=== PATIENT | male | born 1960 | race American Indian/Alaskan Native ===

== ENCOUNTER 2017-11-02 06:28 | Day surgery (SDC) | payer OTHER ==
[2017-09-27 10:51] VITALS: BMI 25.8
[2017-11-02 06:50] VITALS: RESP 18
[2017-11-02] MEDS ORDERED: Bupivacaine HCl 0.25% PF (30 ml) Inj ONE (07:18)
[2017-11-02] MEDS: Iohexol 240 (50 ml) ONE ×3 (07:22→07:52)
[2017-11-02] MEDS: MethylPREDNISolone Depo 40 mg/ml Inj ONE ×5 (07:23→07:52)
[2017-11-02] MEDS: Bupivacaine HCl 0.5% PF (30 ml) Inj IJ ONE ×3 (07:23→07:52)
[2017-11-02] MEDS ORDERED: ceFAZolin 1 gm in NS 0 GM/0 ML BAG IVPB ONE (07:31)
[2017-11-02] MEDS ORDERED: HYDROmorphone 1 mg/ml ISec IM PRN (08:10)
[2017-11-02] MEDS ORDERED: Oxycodone/Acetaminophen 5/325 mg Tab PO PRN (08:12)
[2017-11-02 08:40] VITALS: BP 113/72; PULSE 71; TEMP 98.1; O2SAT 100
--- NOTE | 2017-11-05 08:27 | RAD ---
PROCEDURE: Intraoperative Fluoroscopy. HISTORY: Right. HIP LABRAL TEAR FINDINGS: Fluoroscopic assistance was provided for right hip injection. Please refer to the operative report from YASMIN Lyons, , MD MELANIE.
--- NOTE | 2017-12-06 01:16 | OP ---
PROCEDURE DATE: 11/02/2017 PREOPERATIVE DIAGNOSES: Right hip; 1. Posttraumatic degenerative joint disease. 2. Stiffness. 3. Greater trochanteric bursitis. 4. Abductor tendinopathy. 5. Synovitis. PREOPERATIVE DIAGNOSES: Right hip; 1. Posttraumatic degenerative joint disease. 2. Stiffness. 3. Greater trochanteric bursitis. 4. Abductor tendinopathy. 5. Synovitis. PROCEDURE: Right shoulder injections under fluoroscopic guidance; 1. Intraarticular injection. 2. Greater trochanteric bursa injection. SURGEON: Scott Lynch MD. CABIN SUPERVISOR: None. ANESTHESIA: Local anesthetic, applied by surgeon. COMPLICATIONS: None. SPECIMEN: None. DRAINS: None. ESTIMATED BLOOD LOSS: 0 mL. DISPOSITION: The patient transferred to PACU in stable condition and tolerated the procedure well. INJECTION CONTENTS: Intraarticular injection consisting of 80 mg of Depo-Medrol preservative free in 2 mL/2 mL 0.5% Marcaine without epinephrine preservative free/2 mL of 2% lidocaine without epinephrine preservative free. Greater trochanteric bursa injection content 80 mg of Depo-Medrol preservative free in 2 mL/0.5% Marcaine preservative free without epinephrine, 2 mL/2% lidocaine without epinephrine, preservative free, 2 mL. INDICATIONS FOR PROCEDURE: The patient is a 57-year-old male with no significant past medical history who presents to the office first time on 08/28/2017 with right hip pain and disability with inability to weightbear on right lower extremity for a few weeks. X-rays in the office revealed significant posttraumatic DJD. Physical exam revealed tenderness to palpation at the greater trochanteric bursa as well as groin tenderness to palpation and limited range of motion with pain. He underwent an MR arthrogram of the right hip at [facility] on 09/13/2017 that was read as; 1. Prominent narrowing of the right hip joint space with cartilage thinning and loss. Prominent subchondral cyst formation at the level of the bony acetabulum at its mid portion measuring 7 mm. Additional prominent subchondral cyst formation or an interosseous ganglion formation measuring 1.6 cm, seen within the posterior column of the acetabulum. Prominent signal changes seen within the posterior and superior lateral acetabulum with decreased T1 signal and increased STIR signal best seen for series 2, image 12. This may represent severe osteochondral change versus stress injury versus subchondral osseous injury. Clinical correlation. 2. Fraying and increased signal seen at the undersurface of the right anterior acetabular labrum. 3. Moderate interstitial tendinopathy of the right gluteus tendon attachments on the greater trochanter. On my review of the MRI, I also confirmed that there was significant greater trochanteric bursitis. The patient's pain was significant in the office, rated 10/10 to 8/10 with pain worse with increased activity. He was having significant problems with ADLs and performing his work duties and was unable to return to work for sometime. With the stress fracture of the acetabulum, a total hip arthroplasty although would be a definitive treatment was not indicated at this point in time as there was weakened bone. He would have to have a period of time where he is nonweightbearing to the right lower extremity to allow the stress fracture of the acetabulum to heal. To provide him with at least temporary pain relief and to delay the total hip replacement as much as possible it was indicated for right hip intraarticular fluoroscopic guided cortisone mixture injection as well as greater trochanteric bursa cortisone mixture injection. He did not wish to have sedation and therefore, we do not seek any preadmission testing or medical clearance. The procedure was scheduled at [facility] on 11/02/2017 after we sorted out his complex insurance issues. The risks, benefits, and alternatives of the procedure were discussed at length with the patient with the risks included, not limited to infection, neurovascular damage, need for further surgery, synovitis, allergic reaction, increased pain, need for further procedures. After answering all of his questions, he stated he understood the risks and wished to proceed with the procedure. He watched surgical animation videos and diagnosis animation videos and stated he had a good understanding of his diagnosis as well as the procedure to be done. PROCEDURE IN DETAIL: The patient was identified in the preoperative holding area and the right hip was marked for surgery. Once again as described above, the risks, benefits and alternatives of the procedure were discussed at length with the patient and informed consent was obtained. After a brief discussion with the anesthesia staff, perioperative IV antibiotics were administered. The patient was taken to the operating room and placed on the well-padded operating room table that was radiolucent. All bony prominences and superficial neurovascular structures are well padded. Final time-out was done with the surgeon, anesthesia staff, OR staff. All in agreement with the patient, procedure being done, and the extremity being operated on. Right hip was prepped and draped in standard sterile fashion. Both his feet were tapped together in internal rotation to allow for optimal access to the anterior hip capsule. Bony landmarks of the ASIS was palpated and a line was drawn going down the long access of the leg. With fluoroscopic imaging, the tip of the greater trochanter was confirmed and a line perpendicular to the previous line was drawn across the long access of the leg. Care was taken to stay in the upper outer quadrant to avoid and maximize the chances of avoiding the neurovascular structures and preventing neurovascular injury. The optimal entry point for the spinal needle was identified and 10 mL of local anesthetic consisting of 2% lidocaine without epinephrine preservative free were injected to allow for local anesthetic. Once the local anesthetic took effect, the spinal needle was advanced through the infiltrated entry point for the spinal needle at the skin down to the superior femoral head and neck junction at an intracapsulary position. To confirm an intracapsulary position of the spinal needle, 1:1 mixture diluted of radio opaque contrast and 2% lidocaine without epinephrine preservative free were injected, 2 mL in total to confirm pooling of the contrast and a positive ring sign. It was reconfirmed that the spinal needle was in intraarticular position, excess contrast mixture was aspirated back into the syringe and the final treatment injection, 6 mL total consisting of 2 mL, 80 mg of Depo-Medrol preservative free with 2 mL of 2% lidocaine without epinephrine preservative free and 2 mL of 0.5% Marcaine, preservative free were injected in its entirety in an intraarticular position. Once the intraarticular injection was completed, attention was then turned out to greater trochanteric bursa injection. The greater trochanteric region was palpated and confirmed of fluoroscopic imaging and the spinal needle was advanced to the greater trochanteric bursa. The same injection contents were delivered in its entirety, 6 mL in total at the greater trochanteric bursa as a greater trochanteric bursa injection. Sterile dressings were applied to both injection sites and the patient was then transported to PACU in stable condition. After the intraarticular and greater trochanteric bursa injections were delivered, the patient was examined and indeed he reported complete resolution of pain, both at the bursa and at the groin. He was very happy with the outcome. DISPOSITION: The patient would be discharged home once he is ready and recovered. He has been given prescription for Vicodin for pain control. He has no restrictions to range of motion but as stated before due to the stress fracture of the acetabulum, he will be nonweightbearing to the right lower extremity with which he has not been compliant throughout the course of his treatment and my recommendations. At this point in time, he has obtained crutches and has stated that he will start to be compliant with the nonweightbearing to the right lower extremity recommendations. He will follow up in my office within the next 2 weeks and already has his postinjection appointment set up. Scott Lynch MD
== END 2017-11-02 08:22 | disposition home or self-care (01) ==
LOC: C.SDS 06:28
PROVIDERS: ATTEND Student in an Organized Health Care Education/Training Program
DX: S73.101A Unspecified sprain of right hip, initial encounter (principal); M16.51 Unilateral post-traumatic osteoarthritis, right hip; M67.851 Other specified disorders of synovium, right hip; M24.151 Other articular cartilage disorders, right hip; M84.350D Stress fracture, pelvis, subsequent encounter for fracture with routine healing; M71.9 Bursopathy, unspecified
CPT/HCPCS: 96372; J1030; Q9966

== ENCOUNTER 2018-02-20 05:52 | Inpatient (IN) | payer OTHER ==
[2018-02-18 08:07] VITALS: BMI 27.4
[2018-02-20] MEDS ORDERED: Midazolam 2 MG/2 ML VIAL ONE (07:13)
[2018-02-20] MEDS ORDERED: Rocuronium 10 mg/ml (5 ml) ONE ×3 (07:13→12:21)
[2018-02-20] MEDS ORDERED: Succinylcholine Chloride 20 mg/ml Syr (5 ml) IV ONE ×2 (07:13→08:27)
[2018-02-20] MEDS ORDERED: Propofol 10 mg/ml Inj (20 ML) ONE (07:13)
[2018-02-20] MEDS ORDERED: Phenylephrine 10 mg/ml Inj ONE (07:14)
[2018-02-20] MEDS ORDERED: ePHEDrine 50 mg/ml Inj ONE (07:14)
[2018-02-20] MEDS ORDERED: Bacitracin 150,000 UNIT in Sodium Chloride 0.9% Irrig 3,000 ML IR SCH (08:15)
[2018-02-20] MEDS ORDERED: ceFAZolin IV 2 gm in Dextrose 2 GM/50 ML BAG IVPB ONE ×2 (08:20→17:05)
[2018-02-20] MEDS ORDERED: Bupivacaine Liposomal Inj 20 ml INFIL ONE (08:24)
[2018-02-20] MEDS ORDERED: Sodium Chloride 0.9% 60 ML IV ONE (09:18)
[2018-02-20] MEDS ORDERED: Morphine 4 MG/ML VIAL ONE (09:35)
[2018-02-20 09:39] LABS: URINE BILIRUBIN NEGATIVE (NEGATIVE); URINE BLOOD NEGATIVE (NEGATIVE); URINE CLARITY Clear (Clear); URINE COLOR Yellow (YELLOW); URINE GLUCOSE (UA) NORMAL (Normal); URINE LEUKOCYTE ESTERASE NEG Leu/uL (Negative); URINE PROTEIN NEGATIVE (NEGATIVE); URINE UROBILINOGEN NORMAL mg/dL (0.2-1.0)
[2018-02-20] MEDS ORDERED: Thrombin Topical 20,000 Intl Units Spray Kit TOP ONE (11:41)
[2018-02-20] MEDS ORDERED: Neostigmine Methylsulfate 3mg/3ml Syringe IV ONE (13:09)
[2018-02-20] MEDS ORDERED: Oxycodone/Acetaminophen 5/325 mg Tab PO PRN (13:40)
[2018-02-20] MEDS ORDERED: ceFAZolin IV 2 gm in Dextrose 2 GM/50 ML BAG IVPB SCH (13:45)
[2018-02-20] MEDS: HYDROmorphone 0.5 mg/0.5 ml ISec IVP PRN ×3 (14:12→16:55)
[2018-02-20] MEDS ORDERED: Lactated Ringer's 1,000 ML IV ONE (14:42)
--- NOTE | 2018-02-20 14:49 | RAD ---
Date of service: 02/20/2018 PROCEDURE: Right hip HISTORY: s/p R AMADEO COMPARISON: Not available TECHNIQUE: Two views of right hip FINDINGS: Status post right hip arthroplasty. No dislocation. No acute fracture. Prosthesis grossly intact. Postoperative changes in lateral soft tissues of right thigh. IMPRESSION: Status post right hip arthroplasty peer
[2018-02-20 18:40] VITALS: RESP 20
[2018-02-20] MEDS: ceFAZolin 2 GM in Sodium Chloride 0.9% 100 ML IVPB SCH (21:47)
[2018-02-20] MEDS: Lactated Ringer's 1,000 ML IV SCH (23:45)
--- NOTE | 2018-02-20 23:50 | PCM.SURG1 ---
Surgeon's Initial Post Op Note - Surgeon's Notes Surgeon: Scott Lynch MD Structural Biologist: Ruby Kaminski PA-C 1st assist, Rocco Lee PA-C 2nd assist Type of Anesthesia: General Endo Pre-Operative Diagnosis: Right hip: #1 DJD. #2 stiffness. #3 DONNA Operative Findings: Right hip: #1 DJD. #2 stiffness. #3 DONNA Post-Operative Diagnosis: Right hip: #1 DJD. #2 stiffness. #3 DONNA Operation Performed: Right hip Total Hip Arthroplasty Specimen/Specimens Removed: specimen= jacque cuts sent to pathology per hospital protocol. complications= none. Implants= Medacta AMIS femoral stem, press fit , size 1, 0mm ceramic standard head/neck, 58mm dual mobility poly cup press fit Estimated Blood Loss: EBL {In ML}: 800 Blood Products Given: N/A Drains Used: No Drains Post-Op Condition: Good Date of Surgery/Procedure: 02/20/18 Time of Surgery/Procedure: 09:00
[2018-02-21] MEDS: Lactated Ringer's 1,000 ML IV SCH ×4 (04:04→20:00)
[2018-02-21] MEDS ORDERED: Promethazine 6.25 MG/5 ML CUP PO ONE (04:26)
[2018-02-21] MEDS: ceFAZolin 2 GM in Sodium Chloride 0.9% 100 ML IVPB SCH ×3 (06:28→21:12)
[2018-02-21 06:38] LABS: HEMOGLOBIN 10.9 g/dL (12.0-18.0); MEAN CELL VOLUME 87.6 fL (80.0-94.0); MEAN CORPUSCULAR HEMOGLOBIN 30.1 pg (27.0-31.0); MEAN CORPUSCULAR HGB CONC 34.4 g/dL (33.0-37.0); MEAN PLATELET VOLUME 8.4 fL (7.2-11.7); RBC 3.64 Mil/uL (4.40-5.90); RED CELL DISTRIBUTION WIDTH 13.5 % (11.5-14.5); WHITE BLOOD COUNT 9.2 K/uL (4.8-10.8)
[2018-02-21 07:12] LABS: BLOOD UREA NITROGEN 9 mg/dL (9-20); CALCIUM 8.2 mg/dl (8.6-10.4); GFR AFRICAN-AMERICAN > 60; GFR NON-AFRICAN AMERICAN > 60
--- NOTE | 2018-02-21 08:50 | RAD ---
PROCEDURE: HISTORY: As Above COMPARISON: None TECHNIQUE: Total fluoroscopic time utilized during the procedure: 77.5 seconds. Total dose 0.32242 mGy cm squared FINDINGS: Submitted images from the current procedure: 9 Please refer to the physician's notes performing the procedure. IMPRESSION: Less than 1 hour fluoroscopic time utilized during performance of the procedure
[2018-02-21] MEDS: Promethazine 12.5 mg/10 ml Syrup PO PRN ×2 (08:52→19:55)
[2018-02-21] MEDS: Enoxaparin 40 mg Syringe SC SCH (10:29)
--- NOTE | 2018-02-21 11:51 | CP.PCM.PN ---
Subjective - Date & Time of Evaluation Date of Evaluation: 02/21/18 Time of Evaluation: 11:50 - Subjective Subjective: PGY-[address] Joya Patient seen and examined at bedside. Per nursing no acute events occurred overnight. Patient reports some hip pain today that he rates a 10/10 in severity .He denies any chest pain, shortness of breath, fevers, headaches, abdominal pain, or any other complaints. 58 year old male with past medical history of osteoarthritis and labral tear who was being for right hip replacement. PMD: Dr. Joya Past medical history:osteoarthritis and labral tear, trochanteric bursitis Surgical history: Denies Allergies: Denies Medications: Denies Social: Admits to daily marijuana use. Denies other illicit drugs. Liquor store spa receptionist. Objective - Vital Signs/Intake and Output Vital Signs (last 24 hours): Temp Pulse Resp BP Pulse Ox 99.4 F 86 20 122/68 97 02/21/18 11:40 02/21/18 11:40 02/21/18 11:40 02/21/18 07:25 02/21/18 11:40 Intake and Output: 02/21/18 02/21/18 06:59 18:59 Intake Total 400 1000 Output Total 900 900 Balance -500 100 - Medications Medications: Current Medications Acetaminophen (Tylenol 325mg Tab) 650 mg PO Q4 PRN PRN Reason: Fever 101 degrees fahrenheit Last Admin: 02/21/18 06:38 Dose: 650 mg Docusate Sodium (Colace) 100 mg PO BID [facility] Last Admin: 02/21/18 10:29 Dose: 100 mg Enoxaparin Sodium (Lovenox) 40 mg SC DAILY [facility] Last Admin: 02/21/18 10:29 Dose: 40 mg Hydromorphone HCl (Dilaudid) 2 mg IM Q4H PRN PRN Reason: Pain, severe (8-10) Last Admin: 02/21/18 00:16 Dose: 2 mg Lactated Ringer's (Lactated Ringer's) 1,000 mls @ 100 mls/hr IV .Q10H [facility] Last Admin: 02/21/18 10:27 Dose: Not Given Cefazolin Sodium 2 gm/ Sodium (Chloride) 100 mls @ 200 mls/hr IVPB Q8H [facility] PRN Reason: Protocol Stop: 02/23/18 13:46 Last Admin: 02/21/18 06:28 Dose: 200 mls/hr Morphine Sulfate (Morphine) 3 mg IVP Q4 [facility] Ondansetron HCl (Zofran Inj) 4 mg IVP ONCE PRN PRN Reason: Nausea/Vomiting Oxycodone/Acetaminophen (Percocet 5/325 Mg Tab) 2 tab PO Q4H PRN PRN Reason: Pain, moderate (4-7) Stop: 02/23/18 13:41 Promethazine HCl (Phenergan Syrup) 12.5 mg PO Q6 PRN PRN Reason: Hiccups Last Admin: 02/21/18 08:52 Dose: 12.5 mg - Labs Labs: 02/21/18 06:29 02/21/18 06:29 - Head Exam Head Exam: ATRAUMATIC, NORMAL INSPECTION, NORMOCEPHALIC - Eye Exam Eye Exam: EOMI, Normal appearance, PERRL Pupil Exam: NORMAL ACCOMODATION - ENT Exam ENT Exam: Mucous Membranes Moist, Normal Oropharynx - Respiratory Exam Respiratory Exam: Clear to Ausculation Bilateral, NORMAL BREATHING PATTERN - Cardiovascular Exam Cardiovascular Exam: REGULAR RHYTHM, +S1, +S2 - GI/Abdominal Exam GI & Abdominal Exam: Soft, Normal Bowel Sounds - Neurological Exam Neurological Exam: Alert, Awake, Oriented x3 - Psychiatric Exam Psychiatric exam: Normal Affect, Normal Mood - Skin Skin Exam: Dry, Intact Assessment and Plan - Assessment and Plan (Free Text) Assessment: 58 year old male with past medical history of osteoarthritis and labral tear who was being for right hip replacement. Plan: 1. Right hip replacement -POD#1 -Pain management -PT/OT -Will f/u with Ortho for further rec's. Medications: Acetaminophen 650mg PO Q4 PRN Ancef 2gm IVPB Q8H Morphine 3mg IVP Q4 Diulaudid 2mg IM Q4 PRN Colace 100mg PO BID 2. Nausea -Zofran 4 ivp once PRN PPX Lovenox 40mg SC Daily All management per Dr. Joya
[2018-02-21] MEDS ORDERED: Morphine 4 MG/ML VIAL IVP SCH (12:00)
[2018-02-21] MEDS: Morphine 4 MG/ML VIAL IVP SCH ×3 (12:00→20:00)
--- NOTE | 2018-02-21 13:39 | CP.PCM.PN ---
Subjective - Date & Time of Evaluation Date of Evaluation: 02/21/18 Time of Evaluation: 13:39 - Subjective Subjective: Patient seen and examined at bedside. Pain at moderate at this time. No acute events overnight. Denies CP/SOB/dizziness. Objective - Vital Signs/Intake and Output Vital Signs (last 24 hours): Temp Pulse Resp BP Pulse Ox 99.4 F 86 20 122/68 97 02/21/18 11:40 02/21/18 11:40 02/21/18 11:40 02/21/18 07:25 02/21/18 11:40 Intake and Output: 02/21/18 02/21/18 06:59 18:59 Intake Total 400 1000 Output Total 900 900 Balance -500 100 - Medications Medications: Current Medications Acetaminophen (Tylenol 325mg Tab) 650 mg PO Q4 PRN PRN Reason: Fever 101 degrees fahrenheit Last Admin: 02/21/18 06:38 Dose: 650 mg Docusate Sodium (Colace) 100 mg PO BID [facility] Last Admin: 02/21/18 10:29 Dose: 100 mg Enoxaparin Sodium (Lovenox) 40 mg SC DAILY [facility] Last Admin: 02/21/18 10:29 Dose: 40 mg Hydromorphone HCl (Dilaudid) 2 mg IM Q4H PRN PRN Reason: Pain, severe (8-10) Last Admin: 02/21/18 00:16 Dose: 2 mg Lactated Ringer's (Lactated Ringer's) 1,000 mls @ 100 mls/hr IV .Q10H [facility] Last Admin: 02/21/18 10:27 Dose: Not Given Cefazolin Sodium 2 gm/ Sodium (Chloride) 100 mls @ 200 mls/hr IVPB Q8H [facility] PRN Reason: Protocol Stop: 02/23/18 13:46 Last Admin: 02/21/18 06:28 Dose: 200 mls/hr Morphine Sulfate (Morphine) 3 mg IVP Q4 [facility] Ondansetron HCl (Zofran Inj) 4 mg IVP ONCE PRN PRN Reason: Nausea/Vomiting Oxycodone/Acetaminophen (Percocet 5/325 Mg Tab) 2 tab PO Q4H PRN PRN Reason: Pain, moderate (4-7) Stop: 02/23/18 13:41 Promethazine HCl (Phenergan Syrup) 12.5 mg PO Q6 PRN PRN Reason: Hiccups Last Admin: 02/21/18 08:52 Dose: 12.5 mg - Labs Labs: 02/21/18 06:29 02/21/18 06:29 - Extremities Exam Additional comments: R hip: Dressings CDI, moderate swelling, tenderness diffuse 2nd to surgery sensation intact SP/DP/TN motor intact EHL/FHL/TA/G pedal pulses intact comps soft NT Assessment and Plan (1) Osteoarthritis of right hip Assessment & Plan: POD #1 s/p R AMADEO doing well -pain control -PT/OT WBAT -DVT ppx -continue ancef -discharge planning to home tomorrow -above d/w Dr. Lynch in agreement Status: Acute
[2018-02-21 13:59] LABS: BASO % 0.2 % (0.0-2.0); HEMOGLOBIN 11.1 g/dL (12.0-18.0); LYMPH # 1.2 K/uL (1.0-4.3); LYMPH % 11.3 % (20.0-40.0); MEAN CELL VOLUME 86.9 fL (80.0-94.0); MEAN CORPUSCULAR HEMOGLOBIN 29.8 pg (27.0-31.0); MEAN CORPUSCULAR HGB CONC 34.3 g/dL (33.0-37.0); MONO # 0.8 K/uL (0.0-0.8); MONO % 7.4 % (0.0-10.0); NEUT # 8.6 K/uL (1.8-7.0); NEUT % 81.1 % (50.0-75.0); RBC 3.72 Mil/uL (4.40-5.90); RED CELL DISTRIBUTION WIDTH 13.7 % (11.5-14.5); WHITE BLOOD COUNT 10.7 K/uL (4.8-10.8)
[2018-02-22] MEDS: Morphine 4 MG/ML VIAL IVP SCH ×7 (00:09→20:00)
[2018-02-22] MEDS ORDERED: Aluminum Hydroxide/Magnesium Hydroxide Susp (30 mL) PO ONE (01:11)
[2018-02-22] MEDS: Lactated Ringer's 1,000 ML IV SCH ×3 (04:44→21:03)
[2018-02-22] MEDS: ceFAZolin 2 GM in Sodium Chloride 0.9% 100 ML IVPB SCH ×3 (05:17→21:06)
[2018-02-22 07:10] LABS: HEMOGLOBIN 10.5 g/dL (12.0-18.0); MEAN CELL VOLUME 87.2 fL (80.0-94.0); MEAN CORPUSCULAR HEMOGLOBIN 29.9 pg (27.0-31.0); MEAN CORPUSCULAR HGB CONC 34.3 g/dL (33.0-37.0); MEAN PLATELET VOLUME 8.4 fL (7.2-11.7); RBC 3.52 Mil/uL (4.40-5.90); RED CELL DISTRIBUTION WIDTH 13.6 % (11.5-14.5); WHITE BLOOD COUNT 9.7 K/uL (4.8-10.8)
[2018-02-22 07:12] LABS: BLOOD UREA NITROGEN 8 mg/dL (9-20); CALCIUM 8.7 mg/dl (8.6-10.4); GFR AFRICAN-AMERICAN > 60; GFR NON-AFRICAN AMERICAN > 60
--- NOTE | 2018-02-22 07:15 | CP.PCM.PN ---
Subjective - Date & Time of Evaluation Date of Evaluation: 02/22/18 Time of Evaluation: 07:15 - Subjective Subjective: PGY-[address] Joya Patient seen and examined at bedside. Per nursing no acute events occurred overnight. Patient reports some hip pain today that he rates a 10/10 in severity .He denies any chest pain, shortness of breath, fevers, headaches, abdominal pain, or any other complaints. Objective - Vital Signs/Intake and Output Vital Signs (last 24 hours): Temp Pulse Resp BP Pulse Ox 99.4 F 102 H 20 138/80 99 02/22/18 04:31 02/22/18 04:31 02/22/18 04:31 02/22/18 04:31 02/22/18 04:31 Intake and Output: 02/22/18 02/22/18 06:59 18:59 Intake Total 2049 Balance 2049 - Medications Medications: Current Medications Acetaminophen (Tylenol 325mg Tab) 650 mg PO Q4 PRN PRN Reason: Fever 101 degrees fahrenheit Last Admin: 02/21/18 15:38 Dose: 650 mg Docusate Sodium (Colace) 100 mg PO BID [facility] Last Admin: 02/21/18 17:52 Dose: 100 mg Enoxaparin Sodium (Lovenox) 40 mg SC DAILY [facility] Last Admin: 02/21/18 10:29 Dose: 40 mg Hydromorphone HCl (Dilaudid) 2 mg IM Q4H PRN PRN Reason: Pain, severe (8-10) Last Admin: 02/21/18 00:16 Dose: 2 mg Lactated Ringer's (Lactated Ringer's) 1,000 mls @ 100 mls/hr IV .Q10H [facility] Last Admin: 02/22/18 04:44 Dose: 100 mls/hr Cefazolin Sodium 2 gm/ Sodium (Chloride) 100 mls @ 200 mls/hr IVPB Q8H [facility] PRN Reason: Protocol Stop: 02/23/18 13:46 Last Admin: 02/22/18 05:17 Dose: 200 mls/hr Morphine Sulfate (Morphine) 3 mg IVP Q4 [facility] Last Admin: 02/22/18 05:23 Dose: Not Given Ondansetron HCl (Zofran Inj) 4 mg IVP ONCE PRN PRN Reason: Nausea/Vomiting Oxycodone/Acetaminophen (Percocet 5/325 Mg Tab) 2 tab PO Q4H PRN PRN Reason: Pain, moderate (4-7) Stop: 02/23/18 13:41 Promethazine HCl (Phenergan Syrup) 12.5 mg PO Q6 PRN PRN Reason: Hiccups Last Admin: 02/21/18 19:55 Dose: 12.5 mg - Labs Labs: 02/21/18 13:55 02/22/18 06:54 - Head Exam Head Exam: ATRAUMATIC, NORMAL INSPECTION - Eye Exam Eye Exam: EOMI, Normal appearance, PERRL Pupil Exam: NORMAL ACCOMODATION, PERRL. absent: Irregular, Unequal - ENT Exam ENT Exam: Mucous Membranes Moist, Normal Oropharynx - Respiratory Exam Respiratory Exam: Clear to Ausculation Bilateral, NORMAL BREATHING PATTERN. absent: Prolonged Expiratory Phase, Respiratory Distress - Cardiovascular Exam Cardiovascular Exam: REGULAR RHYTHM, +S1, +S2 - GI/Abdominal Exam GI & Abdominal Exam: Soft, Normal Bowel Sounds. absent: Hyperactive Bowel Sounds - Back Exam Back Exam: NORMAL INSPECTION. absent: paraspinal tenderness - Neurological Exam Neurological Exam: Alert, Awake, CN II-XII Intact, Normal Gait, Oriented x3 - Psychiatric Exam Psychiatric exam: Normal Affect, Normal Mood. absent: Depressed - Skin Skin Exam: Dry, Intact Assessment and Plan - Assessment and Plan (Free Text) Plan: 58 year old male with past medical history of osteoarthritis and labral tear who was being for right hip replacement. Plan: 1. Right hip replacement -POD#12 -Pain management -PT/OT -Will f/u with Ortho for further rec's. Medications: Acetaminophen 650mg PO Q4 PRN Ancef 2gm IVPB Q8H Morphine 3mg IVP Q4 Diulaudid 2mg IM Q4 PRN Colace 100mg PO BID 2. Nausea Improved. -Zofran 4 ivp once PRN PPX Lovenox 40mg SC Daily No GI ppx indicated in this patient. All management per Dr. Joya
[2018-02-22] MEDS: Enoxaparin 40 mg Syringe SC SCH (09:22)
--- NOTE | 2018-02-22 12:25 | CP.PCM.PN ---
Subjective - Date & Time of Evaluation Date of Evaluation: 02/22/18 Time of Evaluation: 12:00 - Subjective Subjective: Patient seen and examined OOB to chair comfortable. Pain much improved today. No new complaints. Objective - Vital Signs/Intake and Output Vital Signs (last 24 hours): Temp Pulse Resp BP Pulse Ox 99.9 F H 92 H 20 137/79 100 02/22/18 08:00 02/22/18 08:00 02/22/18 08:00 02/22/18 08:00 02/22/18 08:00 Intake and Output: 02/22/18 02/22/18 06:59 18:59 Intake Total 2049 Balance 2049 - Medications Medications: Current Medications Acetaminophen (Tylenol 325mg Tab) 650 mg PO Q4 PRN PRN Reason: Fever 101 degrees fahrenheit Last Admin: 02/21/18 15:38 Dose: 650 mg Docusate Sodium (Colace) 100 mg PO BID [facility] Last Admin: 02/22/18 09:22 Dose: 100 mg Enoxaparin Sodium (Lovenox) 40 mg SC DAILY [facility] Last Admin: 02/22/18 09:22 Dose: 40 mg Hydromorphone HCl (Dilaudid) 2 mg IM Q4H PRN PRN Reason: Pain, severe (8-10) Last Admin: 02/21/18 00:16 Dose: 2 mg Lactated Ringer's (Lactated Ringer's) 1,000 mls @ 100 mls/hr IV .Q10H [facility] Last Admin: 02/22/18 04:44 Dose: 100 mls/hr Cefazolin Sodium 2 gm/ Sodium (Chloride) 100 mls @ 200 mls/hr IVPB Q8H [facility] PRN Reason: Protocol Stop: 02/23/18 13:46 Last Admin: 02/22/18 05:17 Dose: 200 mls/hr Morphine Sulfate (Morphine) 3 mg IVP Q4 [facility] Last Admin: 02/22/18 09:21 Dose: 3 mg Ondansetron HCl (Zofran Inj) 4 mg IVP ONCE PRN PRN Reason: Nausea/Vomiting Oxycodone/Acetaminophen (Percocet 5/325 Mg Tab) 2 tab PO Q4H PRN PRN Reason: Pain, moderate (4-7) Stop: 02/23/18 13:41 Promethazine HCl (Phenergan Syrup) 12.5 mg PO Q6 PRN PRN Reason: Hiccups Last Admin: 02/21/18 19:55 Dose: 12.5 mg - Labs Labs: 02/22/18 06:54 02/22/18 06:54 - Extremities Exam Additional comments: R hip: Dressings CDI, moderate swelling, tenderness diffuse 2nd to surgery sensation intact SP/DP/TN motor intact EHL/FHL/TA/G pedal pulses intact comps soft NT Assessment and Plan (1) Osteoarthritis of right hip Assessment & Plan: POD #2 s/p R AMADEO doing well -pain controlled -PT/OT WBAT -DVT ppx -continue ancef until discharge -orthopedically stable for discharge to home today -above d/w Dr. Lynch in agreement Status: Acute
[2018-02-23] MEDS: Morphine 4 MG/ML VIAL IVP SCH ×4 (00:05→11:32)
[2018-02-23] MEDS: ceFAZolin 2 GM in Sodium Chloride 0.9% 100 ML IVPB SCH (05:27)
[2018-02-23 07:58] LABS: MEAN CELL VOLUME 88.2 fL (80.0-94.0); MEAN CORPUSCULAR HEMOGLOBIN 29.8 pg (27.0-31.0); MEAN CORPUSCULAR HGB CONC 33.8 g/dL (33.0-37.0); MEAN PLATELET VOLUME 8.5 fL (7.2-11.7); RBC 3.36 Mil/uL (4.40-5.90); RED CELL DISTRIBUTION WIDTH 13.4 % (11.5-14.5); WHITE BLOOD COUNT 10.1 K/uL (4.8-10.8)
[2018-02-23 08:18] LABS: BLOOD UREA NITROGEN 10 mg/dL (9-20); CALCIUM 8.4 mg/dl (8.6-10.4); GFR AFRICAN-AMERICAN > 60; GFR NON-AFRICAN AMERICAN > 60
[2018-02-23] MEDS: Promethazine 12.5 mg/10 ml Syrup PO PRN (08:30)
[2018-02-23] MEDS: Lactated Ringer's 1,000 ML IV SCH (08:31)
[2018-02-23] MEDS: Enoxaparin 40 mg Syringe SC SCH (09:14)
[2018-02-23] MEDS ORDERED: Docusate-Senna 50 mg-8.6 mg Tab PO ONE (15:18)
[2018-02-23 16:40] VITALS: BP 133/74; PULSE 88; TEMP 99.7; O2SAT 99
--- NOTE | 2018-02-24 22:24 | OP ---
Copied To: Scott Lynch MD Attending MD: Scott Lynch MD PROCEDURE DATE: 02/20/2018 PREOPERATIVE DIAGNOSES: Right hip, 1. Degenerative joint disease. 2. Stiffness/contracture and loss of range of motion 3. Femoral acetabular impingement. 4. Synovitis. POSTOPERATIVE DIAGNOSES: Right hip, 1. Degenerative joint disease. 2. Stiffness/contracture and loss of range of motion 3. Femoral acetabular impingement. 4. Synovitis. PROCEDURE: Right hip total hip arthroplasty. SURGEON: Zoey Lynch M.D. [employer] TEAM LEADER: Ruby Kaminski PA-C. SECOND TRUCK SERVICE MANAGER: Rocco Lee PA-C. JUSTIFICATION FOR TRUCK SERVICE MANAGER: Ruby Kaminski is a certified physician ophthalmic assistant whose skilled surgical service was an absolute necessity for successful completion of the procedure as he provided skilled surgical assistance with positioning of the patient, positioning of extremity, management of the surgical sofia, retraction of neurovascular structures, surgical approach, acetabular reaming and exposure, proximal femur preparation, and broaching, and osteotomy, trialing of hip implants, placement of final implants, wound closure and abductor repair, safe transfer of patient. Ruby Kaminski was an absolute necessity for successful completion of the procedure. Rocco Lee was also necessary as a skilled surgical instrument mechanic and was present for the entire case with the above justification as well. TYPE OF ANESTHESIA: General endotracheal anesthesia . SPECIMEN: Bony cuts sent to pathology per hospital protocol. COMPLICATIONS: None. ESTIMATED BLOOD LOSS: 800. DRAINS: None. DISPOSITION: The patient was extubated and transferred to PACU in stable condition and tolerated the procedure well. IMPLANTS: Medacta #1 AMIS femoral stem press fit size 1, HAIRSTON coated; dual mobility 58 mm diameter acetabular liner, also high molecular weight polyethylene liner, measuring 58 mm outer diameter, 28 mm inner diameter for a 28 mm head, #4 28 mm, 0 mm offset ceramic femoral head. INDICATIONS FOR SURGERY: The patient is a 57-year-old male with no significant past medical history who presents to my office for the first time on 08/28/2017 with right hip pain and disability with inability to weight bear on right lower extremity for few weeks. X-rays in the office revealed DJD with complete loss of joint space with evidence of untreated femoral acetabular impingement with question of stress fracture. Physical examination revealed tenderness to palpation of the greater trochanteric bursa as well as the groin with limited range of motion. He underwent imaging that confirmed that there was degenerative joint disease and possible stress fracture of the acetabulum and conservative treatment was started. Despite the acetabular fracture healing, conservative treatment failed; and he was indicated for cortisone mixture injection which he underwent at [facility] in the OR on 11/02/2017. He underwent fluoroscopic guided cortisone intraarticular mixture injection as well as greater trochanteric bursa injection on 11/02/2017 at [facility]. This provided him with near complete resolution of pain that only lasted a few weeks. The pain continued to worsen and returned to baseline level of 10/10 pain localized to the groin with difficulty weightbearing and disability. Finally after failing conservative management for over 6 months under my care, he was indicated for a right hip total hip arthroplasty. The risks, benefits, and alternatives of the procedure were discussed at length with the patient with the risks included not limited to infection, neurovascular damage, need for further surgery, periprosthetic fracture, failure of implant, failure of the procedure, development of chronic pain and disability, inability to return to preinjury level of activity and occupation, development of blood clots including DVT and PE, stiffness, anesthesia reactions including . After answering all of his questions, he stated that he understood the risks and wished to proceed with surgery. He watched surgical animation videos and diagnosis animation video and stated that he had a good understanding of the procedure as well as his surgery to be done. I also reviewed at length with him the postoperative rehabilitation protocol, and he stated that he had a good understanding of the need for compliance with the rehab protocol in order to maximize chances of having successful outcome after surgery. He was referred to his primary care physician, Dr. Khai Joya for preoperative medical evaluation and PATs and medical clearance, and the procedure was scheduled at [facility] on 02/20/2018. DESCRIPTION OF PROCEDURE: The patient was identified in the preoperative holding area, and the right hip was marked for surgery. Once again, as described above, the risks, benefits, and alternatives to the procedure were discussed at length with the patient and informed consent was obtained. After brief discussion with anesthesia staff, the patient was taken to the operating room and placed on a well-padded operating room table with all bony prominences and superficial neurovascular structures well padded. General anesthesia was administered without difficulty or complication after an initial timeout was done. The patient was then carefully brought onto the left side in the lateral position with the PEG [place] with all bony prominences and superficial neurovascular structures well padded. Examination under anesthesia was carried out. Examination under anesthesia: Right hip with significantly reduced range of motion compared to contralateral hip with flexion to 80 degrees with a mechanical stop, internal rotation to 0 degrees, external rotation to 10 degrees, 0 degrees extension, any flexion beyond 80 degrees resulted in pelvic motion, and any attempted extension beyond 0 resulted in pelvic motion. Once in the lateral position, the right lower extremity was prepped and draped in standard sterile fashion with the hip draped free. A final timeout was done with the surgeon, anesthesia staff, OR staff, all in agreement with the patient, procedure to be done, extremity to be operated on. A modified Hardinge/anterolateral approach to the hip was carried out. Incision was made to skin down to the subcutaneous tissue down to the level of iliotibial fascia. The incision was centered over the greater trochanter with a curvilinear based incision. Incision measured approximately 5 cm. Good hemostasis was achieved and the iliotibial fascia was sharply incised at a small area and released with the use of a curved Light. This exposed the underlying greater trochanteric bursa which was carefully debrided and elevated. This exposed the underlying gluteus medius and minimus attachment to the greater trochanter. While maintaining a healthy cuff of tissue at the attachment site at the greater trochanter, the gluteus medius was released at the anterior two thirds of the tendon as well as the anterior one-third of the vastus lateralis insertion to accompany a successful repair at the end of the procedure. Once the medius and the minimus were elevated anteriorly as a flap, successfully together with the anterior one third of the vastus lateralis, this exposed the underlying capsule. A capsule underwent an inverted T-capsulotomy with some capsulectomy of the adhesed thickened capsular fibers that would get in the way of access to the acetabulum. With traction and external rotation of the right leg, the right hip was dislocated anteriorly and the proximal femoral neck cut was carried out. A line was drawn from the medial calcar, just one fingerbreadth above the level of the lesser trochanter to the greater trochanter, and a saw blade was used to create the proximal femoral osteotomy at the base of the femoral neck. Once the osteotomy was carried out successfully, the femoral neck and head were then passed to the back table for appropriate sizing. Preoperative templating revealed a 58 mm acetabular cup with a [place] type A proximal femur bone. With the acetabular retractors in place and the femur retracted laterally, allowed for good access to the acetabulum through a modified Hardinge anterolateral approach. We started with sequential reaming and medialization of the acetabular cup followed by positioning of the reamer and trialed with a 58 mm trial cup which sat perfectly. Fluoroscopic imaging was used to confirm good acetabular positioning and reaming. Once it was established that the medialization and center of the joint was established in a good position, the final 58 mm acetabular dual mobility liner from [employer] was opened and press fit into position with a fluoroscopic imaging confirming good position of the acetabular liner. Once the acetabular liner was in good position, we then turned out attention to proximal femoral preparation. After opening reamer and box osteotome cuts, sequential reaming was carried out and indeed with the type Donte A proximal femur bone, a size 1 AMIS Stem Broach handle fit well. At that point in time, a trial was carried out and showed good proximal fit. A final size 1 standard HAIRSTON coated cementless AMIS stem was opened and carefully placed into position with good seating and limb length achieved. Trial was then carried out, and finally, a 0 offset 28 mm ultra high molecular weight liner for the dual mobility cup as well as a 28 mm 0 mm offset ceramic femoral head were impacted into position successfully and the hip was then reduced. Final stability checks were carried out showing good stability of the implant with full range of motion obtained. Limb length was checked and found to be spot on. At that point in time, the wound was copiously irrigated as it had been irrigated throughout the case with 3000 mL of normal saline. We then started with wound closure. We began with #1 Vicryl for the capsulotomy repair anteriorly, and we were able to close the anterior leaflets of the T-capsulotomy over the implants. We then proceeded with repair of gluteus medius and gluteus minimus back to the healthy cuff of insertion tissue that remained with alternating #1 Vicryl suture and #2 FiberWire sutures. Vastus lateralis was repaired in the same manner side to side. Stability was checked again as well as the quality of the abductor repair. Once we were satisfied with the repair, we then turned our attention to the iliotibial fascia repair which was carried out with alternating simple #1 Vicryl sutures and #2 FiberWire suture. Once this was carried out to satisfaction, subcutaneous tissue was reapproximated with 2-0 Vicryl suture followed by annel for skin. Sterile dressings were applied and then the patient was carefully brought back into the supine position and extubated and transferred to PACU in stable condition. DISPOSITION: The patient will remain as an inpatient for 24 to 48 hours until he works with physical therapy and determines best discharge parameters, being discharged to acute rehab or subacute rehab versus discharged home with services. He will be weightbearing as tolerated with no restrictions to the hip as this is an anterolateral approach. He will receive IV antibiotics prophylactically for 24 hours and will start DVT prophylaxis in the form of 40 mg subcutaneous injection once daily starting postoperative day#1. He will be under the care of Dr. Khai Joya for primary medical team, and we will monitor his outcome and his progress as an inpatient. Scott Lynch MD
== END 2018-02-23 18:03 | DRG 470 ==
LOC: C.9S 05:52 → C.6T 18:13
PROVIDERS: ADMIT Internal Medicine Pulmonary Disease; ATTEND Internal Medicine Pulmonary Disease
PROC: 0SR90JA Replacement of Right Hip Joint with Synthetic Substitute, Uncemented, Open Approach (ICD-10-PCS; principal; 2018-02-20 07:15)
DX: M16.11 Unilateral primary osteoarthritis, right hip (principal); M24.551 Contracture, right hip; M65.9 Synovitis and tenosynovitis, unspecified; F12.90 Cannabis use, unspecified, uncomplicated